=== PATIENT | male | born 1980 | race Caucasian/White ===

== ENCOUNTER 2019-07-24 21:40 | Emergency (ER) | payer MEDICAID ==
[~2019-07-24] VITALS: Ht 175.3 cm; Wt 104.3 kg
[2019-07-24 21:58] VITALS: BP 121/90
--- NOTE | 2019-07-24 22:50 | NUR ---
39 YEAR OLD MALE COMPLAINS OF 2 BUG BITES ON LEFT LEG (1 BELOW KNEE, 1 NEAR ANKLE), AND 1 BUG BITE ON RIGHT LEG FOR 2-3 WEEKS. PATIENT DENIES NAUSEA, VOMITTING AND DIARRHEA. PATIENT STATES DULL PAIN 5/10. PATIENT CLAIMS THERE WAS PUS PREVIOUSLY. BED IN LOWEST POSITION, LOCKED, BED RAIL UPX1.
--- NOTE | 2019-07-24 22:52 | NUR ---
Dr. Dominguez examining patient.
[2019-07-24 23:17] VITALS: BP 121/90
--- NOTE | 2019-07-24 23:18 | NUR ---
Patient discharged with v/s stable. Written and verbal after care instructions ABOUT CELULITIS given and explained. Patient alert, oriented and verbalized understanding of instructions. Ambulatory with steady gait. All questions addressed prior to discharge. ID band removed. Patient advised to follow up with PMD. Rx of BACTRIM, MOTRIN, KEFLEX given. Patient educated on indication of medication including possible reaction and side effects. Opportunity to ask questions provided and answered.
== END 2019-07-24 23:18 | disposition home or self-care (01) ==
LOC: MED 21:40
DX: L03.115 Cellulitis of right lower limb (principal); L03.116 Cellulitis of left lower limb
CPT/HCPCS: 99283

== ENCOUNTER 2020-02-11 13:12 | Emergency (ER) | payer MEDICAID ==
[~2020-02-11] VITALS: Ht 175.3 cm; Wt 89.4 kg
[2020-02-11 13:20] VITALS: BP 106/76
--- NOTE | 2020-02-11 13:22 | NUR ---
PT AMBULATED TO BED 11, STEADY GAIT.
--- NOTE | 2020-02-11 13:27 | NUR ---
39 Y/M PRESENTS TO ED FOR DENTAL INFECTION, PT REPORTS R LOWER TEETH CRACKED X 2 WEEK. PAIN 10/10 UNRELIEVED BY TYLENOL, MOTRIN AND ORAJEL. PT HAS NOT SEEN HIS DENTIST. PMH-DENIES NKDA RX- MOTRIN, TYLENOL AND ORAJEL
--- NOTE | 2020-02-11 13:47 | NUR ---
DR DE LOS SANTOS AT BEDSIDE
[2020-02-11] MEDS ORDERED: KETOROLAC 30 MG/ML VIAL IM ONE (13:50)
--- NOTE | 2020-02-11 13:54 | NUR ---
[facility] IM ADMINISTERED
[2020-02-11 14:04] VITALS: BP 106/76
== END 2020-02-11 14:04 | disposition home or self-care (01) ==
LOC: MED 13:12
DX: K02.9 Dental caries, unspecified (principal); K03.81 Cracked tooth
CPT/HCPCS: 96372; 99283; J1885

== ENCOUNTER 2022-06-09 16:55 | Emergency (ER) | payer MEDICAID ==
[~2022-06-09] VITALS: Ht 175.3 cm; Wt 84.4 kg
[2022-06-09 16:59] VITALS: BP 136/71
[2022-06-09] MEDS ORDERED: IBUP-2213 PO (17:26)
[2022-06-09] MEDS ORDERED: BENZ1GEL13 MM (17:26)
--- NOTE | 2022-06-09 17:30 | NUR ---
41/M PRESENTS TO ED WITH C/O LACERATION TO TONGUE. STATES HE WAS CHEWING GUM AND BIT DOWN ON HIS TONGUE. BLEEDING CONTROLLED, LACERATION NOTED TO TONGUE, DENIES TAKING MEDS FOR PAIN.
[2022-06-09 18:08] VITALS: BP 136/71
--- NOTE | 2022-06-09 18:08 | NUR ---
Patient discharged with v/s stable. Written and verbal after care instructions ABOUT TONGUE LACERTION given and explained. Patient alert, oriented and verbalized understanding of instructions. Ambulatory with steady gait. All questions addressed prior to discharge. ID band removed. Patient advised to follow up with PMD. Rx of ORAJEL AND IBUPROFEN given. Patient educated on indication of medication including possible reaction and side effects. Opportunity to ask questions provided and answered.
== END 2022-06-09 18:08 | disposition home or self-care (01) ==
LOC: MED 16:55
DX: S01.512A Laceration without foreign body of oral cavity, initial encounter (principal); R03.0 Elevated blood-pressure reading, without diagnosis of hypertension; Z79.899 Other long term (current) drug therapy; Y33.XXXA Other specified events, undetermined intent, initial encounter; Y93.89 Activity, other specified; Y92.89 Other specified places as the place of occurrence of the external cause; Y99.8 Other external cause status
CPT/HCPCS: 90471; 90715; 99283